=== PATIENT | male | born 1950 | race Caucasian/White ===

== ENCOUNTER 2016-07-28 14:33 | Emergency (ER) | payer BC ==
[2016-07-28 15:01] VITALS: BP 116/83
--- NOTE | 2016-07-28 15:15 | ED Physician Documentation ---
Dizziness - HISTORIAN Historian: patient - HPI Stated Complaint: woke at 12:30pm and rolled over, experienced his eyes moving rapidly Chief Complaint: Dizziness Additional Information: woke up lying in bed, rolled over and his eyes started fluttering back and forth. making his vision blurry. this last 15-20 seconds then settled down. he had no other symptoms, he feels a little off balance now. He had recent shoulder surgery, last took pain pill 3 days ago. newly taking herbal arthritis medicine. he appears very anxious. Timing: sudden onset, gone now Duration: none, noted on awakening Severity: mild Associated Symptoms: vestibular, sense of spinning. denies: hearing loss, nausea, vomiting, headache Decreased Ability to Stand/ Walk: denies: weak Usually: walks w/o assistance Worsened By: nothing Further Comments: no - ROS CONST: none EYES/ENT: none GI/: none MS/SKIN/LYMPH: none NEURO/PSYCH: denies: tingling hands, muscle spasms hands, tingling face CVS/RESP: none - PAST HX Past History: none Cardiac Disease: none Surgeries/Procedures: other (ortho, kidney cancer nephrectomy) Allergies/Adverse Reactions: Allergies Allergy/AdvReac Type Severity Reaction Status Date / Time Sulfa (Sulfonamide Allergy Verified 07/28/16 15:01 Antibiotics) sulfamethoxazole Allergy Verified 07/28/16 15:01 [From ] trimethoprim [From ] Allergy Verified 07/28/16 15:01 Home Medications: Ambulatory Orders Medication Instructions Recorded Aspirin [Isai] 81 mg PO D 07/28/16 Dronedarone HCl [Multaq] 400 mg PO BID 07/28/16 Flaxseed/Evening Prim/Bilberry 1 tab PO D 07/28/16 [Retaine Flax Softgel] Multivitamin [Daily Multiple 1 tab PO D 07/28/16 Vitamin] Tofacitinib Citrate [Xeljanz] 5 mg PO D 07/28/16 - SOCIAL HX Smoking History: non-smoker Alcohol Use: none Drug Use: none - FAMILY HX Family History: none - VITAL SIGNS Vital Signs: Vital Signs Temp Pulse Resp BP Pulse Ox 97.8 F 90 18 116/83 99 07/28/16 14:33 07/28/16 14:33 07/28/16 14:33 07/28/16 14:33 07/28/16 14:33 - REVIEWED ASSESSMENTS Nursing Assessment Reviewed: Yes Vitals Reviewed: Yes ED Results Lab/Radiology - Lab Results Lab Results: BUN and Crea little elev, but he has only one kidney. - Radiology Radiology Impressions: CT brain no acute - Orders Orders: ED Orders Category Date Time Status CT BRAIN W/O CONTRAST Stat Exams 07/28/16 Ordered CBC/PLATELET/DIFF Routine Lab 07/28/16 Ordered CMP Routine Lab 07/28/16 Ordered Dizziness Physical Exam - Physical Exam General Appearance: mild distress EENT: pharynx normal, no signs of dehydration, nystagmus. No: no nystagmus Neck: normal inspection, thyroid normal, supple. No: lymphadenopathy, stiff neck, carotid bruit Respiratory: no respiratory distress, breath sounds nml CVS: reg rate & rhythm, heart sounds normal Abdomen: soft Skin: warm/dry, normal color Neuro: nml orientation, nml speech, nml cognition, mood/affect nml Extremities: non-tender Cranial: nml as tested, no evidence of acute CVA Cerebellar: nml as tested Sensorimotor: motor nml, sensation nml Discharge Clincal Impression: Dizziness Vestibular neuronitis Qualifiers: Laterality: unspecified laterality Qualified Code(s): H81.20 - Vestibular neuronitis, unspecified ear Home Medications: Ambulatory Orders Aspirin [Isai] 81 mg PO D 07/28/16 Dronedarone HCl [Multaq] 400 mg PO BID 07/28/16 Flaxseed/Evening Prim/Bilberry [Retaine Flax Softgel] 1 tab PO D 07/28/16 Multivitamin [Daily Multiple Vitamin] 1 tab PO D 07/28/16 Tofacitinib Citrate [Xeljanz] 5 mg PO D 07/28/16 Condition: Good Disposition: 01 HOME, SELF-CARE Decision to Admit: NO Date of Decison to Admit: 07/28/16 Decision Time: 16:06
[2016-07-28 15:39] LABS: BASOPHILS % 0.3 (0.0-1.5); EOSINOPHILS % 3.5 % (0.0-6.8); LYMPHOCYTES # 1.2 # k/uL (0.6-4.0); MEAN CORPUSCULAR HEMOGLOBIN 29.4 pg (28.0-34.0); MONOCYTES # 0.4 # k/uL (0.0-0.9); MONOCYTES % 5.1 % (0.0-11.0); NEUTROPHILS # 5.5 # k/uL (1.4-7.7)
[2016-07-28 15:55] LABS: eGFR (African) > 60; eGFR (Non-African) 50
--- NOTE | 2016-07-28 16:03 | Diagnostic Imaging Report ---
[facility] [id number] [facility] [address] [place], [place]. [address] Report Submission Date: Jul 28, 2016 3:38:39 PM CDT Patient Study Name: MAGALI GILL Date: Jul 28, 2016 3:23:29 PM CDT Modality Type: CT\SR Gender: M Description: CT BRAIN W/O CONTRAST : 52 Institution: [facility] Physician: MICHELLE GRAHAM CT brain noncontrast Date of study: 28 July 2016 CLINICAL HISTORY: PT STATES DIZZINESS AND LIGHTHEADED X FEW HOURS (Hx) / NYSTAGMUS DIZZY (DICOM Hx) TECHNIQUE: 5 mm contiguous axial images of the brain, noncontrast. FINDINGS: There is no evidence of intracranial mass effect, hemorrhage, or acute hydrocephalus. The lateral ventricles are symmetrical and the 4th ventricle is midline without shift. No acute brain parenchymal changes or extra-axial fluid collections are identified. The posterior fossa contents are within normal limits. The calvarium is intact. The visualized sinuses and mastoid air cells are clear. IMPRESSION: No acute intracranial process. Electronically signed on Jul 28, 2016 3:38:39 PM CDT by: Rayray ROBBINS
[2016-07-28] MEDS: MECLIZINE HCL 25 MG TABLET PO ONE (16:21)
== END 2016-07-28 16:20 | disposition home or self-care (01) ==
LOC: ED 14:33
DX: H81.20 Vestibular neuronitis, unspecified ear (principal)
CPT/HCPCS: 70450; 80053; 85025; 99283

== ENCOUNTER 2018-04-27 09:51 | Outpatient (CLI) | payer OTHER ==
[~2018-04-27 09:51] MED LIST: 0.9 % SODIUM CHLORIDE PF 10 ML VIAL IJ ONE; LIDOCAINE HCL 2% MDV 400MG/20ML VIAL ONE; TRIAMCINOLONE ACETONID 40MG/ML VIAL ONE
--- NOTE | 2018-05-07 09:02 | CERVICAL ESI WITH FLUORO ---
SUBJECTIVE: Mr. Mix presents today with return of left cervical radiculitis. He has pain that radiates from the left scapula, left chest wall, and left arm into the forearm, wrist, and hand. He saw Dr. Clay in the past, as he could not get an appointment with us, and an MRI revealed C4-C5, C5-C6, and C6-C7 disc protrusions. There is a fairly large left lateral disc protrusion at C7-T1 which radiates into the neural foramen without severe stenosis. He has done well with C7-T1 epidural injections and I am going to plan on repeating that today. PROCEDURE: Left C7-T1 epidural steroid injection with fluoroscopic guidance. DESCRIPTION OF PROCEDURE: The risks and benefits were discussed with the patient, including the risks of infection, bleeding, nerve injury including paralysis, and headache. Furthermore, I discussed the risk of steroid exposure causing hyperglycemia, hypertension, osteoporosis, or increased infectious risks. The patient understood these risks and agreed to proceed. Consent was obtained. The patient was placed prone on the fluoroscopy table with a pillow underneath the chest to afford slight anterior flexion of the cervical spine. The patient's back of the neck was cleaned a sterile drape was applied. A Tuohy epidural needle was inserted with a left paramedian approach at the C7-T1 level. The position of the needle was verified with AP and lateral fluoroscopic views. The needle was advanced with a normal saline [id number] technique until [id number] was obtained. On obtaining [id number] to normal saline it was verified that there was no aspiration of CSF or blood. At this point, Omnipaque 240 myelogram dye was injected into the cervical epidural space. It was verified with fluoroscopic views that the dye was located within the epidural space in the desired distribution. At this point, the medication was injected into the cervical epidural space. The stylet was replaced in the needle and the needle was removed from the neck. The neck was cleaned and a bandage was applied over the injection site. The patient tolerated the procedure well and was monitored afterwards for a total of 20 minutes during which time the vital signs remained stable and no adverse sequelae were experienced. The patient was discharged home in good condition. Prior to discharge the patient was given discharge instructions. ASSESSMENT: 1. Left cervical radiculitis. 2. Neural foraminal stenosis. 3. Multi-level disc disease. PLAN: Left C7-T1 epidural steroid injection with fluoroscopic guidance today. FOLLOW UP: Return to clinic if problems develop or worsen. ITZEL
== END 2018-04-27 10:30 ==
LOC: OUT 09:51
PROVIDERS: ATTEND Anesthesiology Pain Medicine
DX: M54.12 Radiculopathy, cervical region (principal); M48.02 Spinal stenosis, cervical region; M50.90 Cervical disc disorder, unspecified, unspecified cervical region
CPT/HCPCS: 62321; 99204; J3301; Q9966